=== PATIENT | female | born 1960 | race Caucasian/White ===

== ENCOUNTER → 2025-02-28 09:48 | Outpatient (BNVA) | payer MEDICARE, SELFPAY | PROVIDERS: Visit Provider Nurse Practitioner Family | DX: L82.1 Other seborrheic keratosis (principal); D18.01 Hemangioma of skin and subcutaneous tissue; L57.8 Other skin changes due to chronic exposure to nonionizing radiation; L81.3 Cafe au lait spots; L81.4 Other melanin hyperpigmentation | CPT/HCPCS: 99203 ==